=== PATIENT | male | born 1995 | race Caucasian/White ===

== ENCOUNTER 2018-07-02 03:55 | Emergency (ER) | payer OTHER ==
[~2018-07-02] VITALS: Ht 170.2 cm; Wt 85.8 kg
[2018-07-02 04:04] VITALS: BP 140/92
--- NOTE | 2018-07-02 04:07 | NUR ---
22/M PRESENTS TO ED, C/O L EAR PAIN, X2 DAYS. STARTED YESTERDAY, PROGRESSIVELY WORSENED, REPORTS INSOMNIA DUE TO PAIN. PT REPORTS HAVING COUGH AND CONGESTION X1 WEEK WITH IMPROVEMENT. PT AOX4, GCS 15, RR EVEN AND UNLABORED. DENIES MED HX OR RX.
[2018-07-02] MEDS ORDERED: IBUPROFEN 800 MG TAB PO ONE (04:20)
[2018-07-02] MEDS ORDERED: AMOXICILLIN 500 MG CAP PO ONE (04:20)
[2018-07-02 05:05] VITALS: BP 144/93
--- NOTE | 2018-07-02 05:05 | NUR ---
Patient discharged with v/s stable. Written and verbal after care instructions given and explained. Patient alert, oriented and verbalized understanding of instructions. Ambulatory with steady gait. All questions addressed prior to discharge. ID band removed. Patient advised to follow up with PMD. Rx of AMOXICILLIN, MOTRIN given. Patient educated on indication of medication including possible reaction and side effects. Opportunity to ask questions provided and answered.
== END 2018-07-02 05:05 | disposition home or self-care (01) ==
LOC: MED 03:55
DX: H66.92 Otitis media, unspecified, left ear (principal); R03.0 Elevated blood-pressure reading, without diagnosis of hypertension
CPT/HCPCS: 99283

== ENCOUNTER 2019-02-10 01:28 | Emergency (ER) | payer OTHER ==
[~2019-02-10] VITALS: Ht 170.2 cm; Wt 87.1 kg
[2019-02-10 01:38] VITALS: BP 130/72
--- NOTE | 2019-02-10 01:44 | NUR ---
PT AMBULATES TO LOBBY WITH STEADY GAIT.
--- NOTE | 2019-02-10 01:46 | NUR ---
PT TAKEN TO BED 07.
--- NOTE | 2019-02-10 01:48 | NUR ---
23 Y/O M PRESENTS TO ER C/O ABDOMINAL PAIN SINCE THIS MORNING. PT CURRENT PAIN LEVEL 0/10. PT STATES PAIN COMES AND GOES, WHEN IT HURTS PAIN LEVEL 6/10, CRAMPING. PT DENIES NAUSEA. PT VOMITED X 3, TWICE IN THE AFTERNOON AND AROUND 8PM. PT HAD 2-3 EPISODES OF DIARRHEA. BOWEL SOUNDS ARE ACTIVE X 4 QUADRANTS. ABDOMEN IS SOFT, NONTENDER TO TOUCH. NKA. NO MED HX. SAFETY MEASURES IN PLACE. WAITING FOR ERMD TO EVALUATE PT.
--- NOTE | 2019-02-10 02:10 | NUR ---
DR. OJEDA AT PT BEDSIDE
--- NOTE | 2019-02-10 02:39 | NUR ---
PT LEFT TO XRAY VIA WHEELCHAIR
[2019-02-10 02:44] LABS: APPEARANCE,URINE CLOUDY (CLEAR); BILIRUBIN,URINE NEGATIVE (NEGATIVE); BLOOD, URINE TRACE-I (NEGATIVE); COLOR,URINE YELLOW (YELLOW); LEUKOCYTE ESTERASE ,URINE NEGATIVE (NEGATIVE); NITRITE, URINE NEGATIVE (NEGATIVE); PH,URINE 5.5 (5.0-9.0); UGLUCOSE NEGATIVE (NEGATIVE)
[2019-02-10 03:00] LABS: RBC,URINE NONE SEEN /HPF (0-5); WBC,URINE NONE SEEN /HPF (0-5)
[2019-02-10 03:01] LABS: URINE AMORPHOUS URATE 4+ /HPF (None Seen)
[2019-02-10 03:25] VITALS: BP 130/72
--- NOTE | 2019-02-10 03:25 | NUR ---
Patient discharged with v/s stable. Written and verbal after care instructions given and explained. Pt encouraged to drink plenty of fluid and to incorporate more fiber in diet. Patient alert, oriented and verbalized understanding of instructions. Ambulatory with steady gait. All questions addressed prior to discharge. ID band removed. Patient advised to follow up with PMD. Rx of Miralax was given. Patient educated on indication of medication including possible reaction and side effects. Opportunity to ask questions provided and answered.
== END 2019-02-10 03:25 | disposition home or self-care (01) ==
LOC: MED 01:28
DX: K59.00 Constipation, unspecified (principal); R11.10 Vomiting, unspecified; R19.7 Diarrhea, unspecified
CPT/HCPCS: 74021; 81001; 99284

== ENCOUNTER 2019-06-25 04:08 | Emergency (ER) | payer OTHER ==
[~2019-06-25] VITALS: Ht 170.2 cm; Wt 89.4 kg
[2019-06-25 04:10] VITALS: BP 129/76
--- NOTE | 2019-06-25 04:20 | NUR ---
PT TAKEN TO BED 12
--- NOTE | 2019-06-25 04:27 | NUR ---
23 YO MALE CO EPIGASTRIC PAIN SINCE YESTERDAY MORNING. PT DESCRIBES THE PAIN A CRAMPING AND BURNING SENSATION IN THE EPIGASTRIC REGION. THE PAIN DOES NOT RADIATE AND IT IS 7/10. PT HAS NO MED HX AND IS TAKING NO RX MEDS AT THIS TIME.
--- NOTE | 2019-06-25 04:36 | NUR ---
Dr. Paz examining patient.
[2019-06-25] MEDS ORDERED: DICYCLOMINE HCL LIQUID 10 MG/5 ML UDC ONE (04:39)
[2019-06-25] MEDS ORDERED: LIDOCAINE VISCOUS 2% 20 ML UDC ONE (04:39)
[2019-06-25] MEDS ORDERED: ALUMINUM HYD/MAG/SIMETHICONE 30 ML UDC ONE (04:39)
[2019-06-25] MEDS ORDERED: DICYCLOMINE HCL LIQUID 20 MG, ALUMINUM HYD/MAG/SIMETHICONE 30 ML, LIDOCAINE VISCOUS 2% ... PO ONE ×3 (04:40)
[2019-06-25 04:51] VITALS: BP 129/76
--- NOTE | 2019-06-25 04:52 | NUR ---
Patient discharged with v/s stable. Written and verbal after care instructions given and explained. Patient alert, oriented and verbalized understanding of instructions. Ambulatory with steady gait. All questions addressed prior to discharge. ID band removed. Patient advised to follow up with PMD. Rx of ZOFRAN, IMMODIUM AND MOTRIN given. Patient educated on indication of medication including possible reaction and side effects. Opportunity to ask questions provided and answered.
== END 2019-06-25 04:52 | disposition home or self-care (01) ==
LOC: MED 04:08
DX: R10.13 Epigastric pain (principal); R19.7 Diarrhea, unspecified
CPT/HCPCS: 99283

== ENCOUNTER 2022-04-29 12:53 | Emergency (ER) | payer OTHER ==
[~2022-04-29] VITALS: Ht 172.7 cm; Wt 74.8 kg
[2022-04-29 13:01] VITALS: BP 124/75
--- NOTE | 2022-04-29 13:03 | NUR ---
PT AMBULATED TO ER BED 4
[2022-04-29] MEDS ORDERED: DEXAMETHASONE 10 MG/ML VIAL IM ONE (13:10)
[2022-04-29] MEDS ORDERED: IBUP-2213 PO (13:54)
[2022-04-29] MEDS ORDERED: AMOX500C25 PO (13:54)
--- NOTE | 2022-04-29 14:45 | NUR ---
Patient discharged with v/s stable. Written and verbal after care instructions about tonsillitis given and explained. Patient alert, oriented and verbalized understanding of instructions. Ambulatory with steady gait. All questions addressed prior to discharge. ID band removed. Patient advised to follow up with PMD. Rx of Amoxicillin and Ibuprofen given. Patient educated on indication of medication including possible reaction and side effects. Opportunity to ask questions provided and answered.
== END 2022-04-29 14:45 | disposition home or self-care (01) ==
LOC: MED 12:53
DX: J03.90 Acute tonsillitis, unspecified (principal); Z20.822 Contact with and (suspected) exposure to COVID-19; J02.9 Acute pharyngitis, unspecified; R51.9 Headache, unspecified; F17.210 Nicotine dependence, cigarettes, uncomplicated; Z79.899 Other long term (current) drug therapy
CPT/HCPCS: 87081; 87426; 96372; 99283; J1100